=== PATIENT | female | born 1960 | race Caucasian/White ===

== ENCOUNTER 2023-12-25 08:19 | Day surgery (SDC) | payer BC ==
[~2023-12-25] VITALS: Ht 152.4 cm; Wt 68.1 kg
[2023-12-25] MEDS ORDERED: NORMAL SALINE 10 ML VIAL ONE (09:00)
[2023-12-25] MEDS ORDERED: IOHEXOL 300 mgI/mL, 50 mL INFUS..BTL IV ONE (09:00)
[2023-12-25] MEDS ORDERED: LIDOCAINE 2%, 20 ML MDV ONE (09:00)
[2023-12-25] MEDS ORDERED: methylPREDNISolone ACETATE 40 MG/ML ONE (09:00)
[2023-12-25] MEDS ORDERED: DIPHENHYDRAMINE INJ 50 MG/ML VIAL ONE (12:01)
[2023-12-25] MEDS ORDERED: fentaNYL CITRATE/PF 100 MCG/2 ML AMP ONE (12:02)
[2023-12-25] MEDS: MIDAZOLAM HCL 5 MG/5 ML VIAL ONE (12:41)
[2023-12-25 15:30] VITALS: O2SAT 100
[2023-12-25 15:36] VITALS: BP_SYST 123; PULSE 71; RESP 20
== END 2023-12-25 13:40 | disposition home or self-care (01) ==
LOC: SDS 08:19 → SMU 08:20 → SDS 13:40
PROVIDERS: ATTEND Internal Medicine
DX: M51.16 Intervertebral disc disorders with radiculopathy, lumbar region (principal); M51.9 Unspecified thoracic, thoracolumbar and lumbosacral intervertebral disc disorder; I10 Essential (primary) hypertension; E11.9 Type 2 diabetes mellitus without complications; E78.5 Hyperlipidemia, unspecified; Z79.84 Long term (current) use of oral hypoglycemic drugs; Z79.899 Other long term (current) drug therapy
CPT/HCPCS: 62323; 82948; J1030; J2250; J3010; Q9967; 76000; J1200; J2001